=== PATIENT | male | born 2000 | race Caucasian/White ===

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

== ENCOUNTER 2020-09-16 14:13 | Emergency (ER) | payer MEDICAID, OTHER ==
[~2020-09-16] VITALS: Ht 185.4 cm; Wt 62.1 kg
[~2020-09-16 14:13] MED LIST changes: +CEPH500T PO; +DICL75TA2 PO
[2020-09-16 14:15] VITALS: BP 127/80
[2020-09-16] MEDS ORDERED: cefTRIAXone 1,000 MG/2.86 ml vial (IM ONLY) IM STA (14:27)
[2020-09-16] MEDS ORDERED: AZITHROMYCIN 250 MG TAB (ZITHROMAX) PO STA (14:27)
[2020-09-16] MEDS ORDERED: LIDOCAINE 1% INJ 20 ML 20 ML VIAL INJ ONE (14:30)
[2020-09-16 14:40] LABS: BACTERIA,URINE TRACE /HPF; BILIRUBIN,URINE NEGATIVE (NEGATIVE); CLARITY,URINE CLOUDY; COLOR,URINE YELLOW; GLUCOSE, URINE (UA) NEGATIVE (NEGATIVE); KETONES,URINE NEGATIVE (NEGATIVE); LEUKOCYTE ESTERASE ,URINE 2+ (NEGATIVE); NITRITE,URINE NEGATIVE (NEGATIVE); PROTEIN,URINE 1+ (NEGATIVE); WBC,URINE 50-100 /HPF
--- NOTE | 2020-09-16 14:49 | ED GU-Male ---
General Chief Complaint: Male Reproductive Stated Complaint: PENILE DISCHARGE & PAINFUL URINATION Nursing Triage Note: Patient presents to the ED with c/o of penile discharge and burning with urination. He states that he had sexual intercourse with a girl 3 days ago then developed a yellow/green discharge. Source: patient History of Present Illness Date Seen by Provider: Sep 16, 2020 Time Seen by Provider: 14:14 Initial Comments 20-year-old male presenting with complaints of 3 days of burning with urination as well as a yellow-green discharge. He had unprotected intercourse about a week ago with a girl. Then he started having these symptoms about 3 days ago. He denies any fever or chills. He has no rash. He had looked his symptoms up on the Internet and is concerned that he may have gonorrhea or chlamydia. He denies having these symptoms in the past. He denies any allergies to antibiotics. He has no nausea or vomiting. He denies any abdominal pain. He only has pain when he goes to urinate. Severity/Quality: severe, burning (when urinating) Location: urethral Radiation: none Activities at Onset: none Prior Genitourinary Problems: none Sexual Jolivue History: less than 2 months ago Allergies and Home Medications Allergies Coded Allergies: No Known Drug Allergies (Unverified , 11/23/18) Home Medications Amoxicillin 500 Mg Capsule, 875 MG PO BID Prescribed by: THALIA RAMOS on 06/01/191906 Cephalexin 500 Mg Tablet, 500 MG PO BID Prescribed by: RAINA CLAUDIO on 11/05/19827 Cephalexin 500 Mg Tablet, 500 MG PO BID Prescribed by: RAINA CLAUDIO on 11/05/19827 Chlorhexidine Gluconate 473 Ml Mouthwash, 473 ML MM BID Prescribed by: THALIA RAMOS on 06/01/191906 Diclofenac Sodium 50 Mg Tablet.dr, 50 MG PO BID Prescribed by: THALIA RAMOS on 06/01/191906 Diclofenac Sodium 75 Mg Tablet.dr, 75 MG PO BID Prescribed by: RAINA CLAUDIO on 11/05/19827 Diclofenac Sodium 75 Mg Tablet.dr, 75 MG PO BID Prescribed by: RAINA CLAUDIO on 11/05/19827 Hydrocodone Bit/Acetaminophen 1 Tab Tab, 1-2 EACH PO Q6H Prescribed by: LISA VELEZ on 11/23/18 338 Ondansetron 4 Mg Tab.rapdis, 4 MG PO Q6H PRN for NAUSEA/VOMITING Prescribed by: LISA VELEZ on 11/23/18338 Promethazine HCl 25 Mg Tablet, 25 MG PO Q6H PRN for NAUSEA/VOMITING Prescribed by: LISA VELEZ on 11/23/18338 Patient Home Medication List Home Medication List Reviewed: Yes Review of Systems Review of Systems Constitutional: No chills, No fever EENTM: no symptoms reported Respiratory: no symptoms reported Cardiovascular: no symptoms reported Gastrointestinal: no symptoms reported Genitourinary: see HPI Musculoskeletal: no symptoms reported Skin: no symptoms reported Psychiatric/Neurological: No Symptoms Reported Endocrine: No Symptoms Reported Hematologic/Lymphatic: No Symptoms Reported Past Pktvmta-Lpupom-Clyeer Hx Past Med/Social Hx: Reviewed Nursing Past Med/Soc Hx Patient Social History Alcohol Use: Denies Use Number of Drinks Today: AA Alcohol Beverage of Choice: Beer Smoking Status: Current Everyday Smoker Type Used: Cigarettes 2nd Hand Smoke Exposure: No Recent Infectious Disease Expo: No Recent Hopitalizations: No Seasonal Allergies Seasonal Allergies: No Past Medical History Surgeries: No Respiratory: No Cardiac: No Neurological: No Genitourinary: No Gastrointestinal: No Musculoskeletal: No Endocrine: No HEENT: No Cancer: No Psychosocial: No Integumentary: No Blood Disorders: No Physical Exam Vital Signs Vital Signs - First Documented 09/16/20 14:15 Temp 36.3 Pulse 72 Resp 16 B/P (MAP) 127/80 (96) Pulse Ox 98 O2 Delivery Room Air Capillary Refill : Less Than 3 Seconds Height, Weight, BMI Height: 6'0" Weight: 140lbs. oz. 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 tested, alert, oriented x 3 Skin: normal color, warm/dry; No rash Progress/Results/Core Measures Suspected Sepsis Recent Fever Within 48 Hours: No Infection Criteria Present: Suspected New Infection New/Unexplained Altered Menta: No Sepsis Screen: No Definite Risk SIRS Temperature: Pulse: 72 Respiratory Rate: 16 Blood Pressure 127 /80 Mean: 96 Results/Orders Lab Results Laboratory Tests Test 09/16/20 14:15 Range/Units Urine Color YELLOW Urine Clarity CLOUDY Urine pH 6.0 5-9 Urine Specific [place] 1.025 H 1.016-1.022 Urine Protein 1+ H NEGATIVE Urine Glucose (UA) NEGATIVE NEGATIVE Urine Ketones NEGATIVE NEGATIVE Urine Nitrite NEGATIVE NEGATIVE Urine Bilirubin NEGATIVE NEGATIVE Urine Urobilinogen 0.2 < = 1.0 MG/DL Urine Leukocyte Esterase 2+ H NEGATIVE Urine RBC (Auto) 2+ H NEGATIVE Urine RBC 2-5 H /HPF Urine WBC 50-100 H /HPF Urine Squamous Epithelial Cells NONE /HPF Urine Crystals NONE /LPF Urine Bacteria TRACE /HPF Urine Casts NONE /LPF Urine Mucus NEGATIVE /LPF Urine Culture Indicated YES My Orders Orders - AGGIE MALCOLM MD Ua Culture If Indicated (09/16/20 14:18) Neis Dilip Dna Urine Test (09/16/20 14:18) Chlamydia Trachomatis Urine (09/16/20 14:18) Ceftriaxone For Im Use (Rocephin For Im (09/16/20 14:27) Azithromycin Tablet (Zithromax Tablet) (09/16/20 14:27) Lidocaine 1% Inj 20 Ml (Xylocaine 1% Inj (09/16/20 14:30) Urine Culture (09/16/20 14:15) Medications Given in ED Current Medications Medications Dose Ordered Sig/Fabricio Route Start Time Stop Time Status Last Admin Dose Admin Lidocaine HCl 2.1 ml ONCE ONCE INJ 09/16/20 14:30 09/16/20 14:31 DC 09/16/20 14:42 2.1 ML Vital Signs/I&O 09/16/20 14:15 Temp 36.3 Pulse 72 Resp 16 B/P (MAP) 127/80 (96) Pulse Ox 98 O2 Delivery Room Air Capillary Refill : Less Than 3 Seconds Blood Pressure Mean: 96 Progress Note #1: Progress Note UA with GC and Chlamydia sent. based on his symptoms and discharge a dose of Ceftriaxone 1 gm IM and Azithromycin 1 gm po was ordered. Progress Note #2: Progress Note UA shows LE and WBC but not much for bacteria so will proceed with the treatment here in ED but not continue with oral antibiotics beyond the ones here. Follow up with clinic or health department for further testing/care Departure Impression Primary Impression: Urethritis, unspecified Additional Impressions: Penile discharge, without blood Dysuria Disposition: HOME, SELF-CARE Condition: Stable Departure-Patient Inst. Decision time for Depature: 14:49 Referrals: NO,LOCAL PHYSICIAN (PCP) Primary Care Physician [facility] Patient Instructions: STD Prevention, Sexually Transmitted Diseases ED, Urethritis (DC) Add. Discharge Instructions: Stay well hydrated and drink plenty of water and cranberry juice. Over the counter you may try taking AZO to help with pain for the next day or two while the antibiotics kick in to treat the infection. Check with [facility] or [facility] for further testing for other sexually transmitted infection tests. All discharge instructions reviewed with patient and/or family. Voiced understanding. AGGIE MALCOLM MD Sep 16, 2020 14:49
== END 2020-09-16 14:58 | disposition home or self-care (01) ==
LOC: EDUNIT# 14:13 → ER FS 14:14
DX: N34.2 Other urethritis (principal); R36.9 Urethral discharge, unspecified; R30.0 Dysuria; F17.210 Nicotine dependence, cigarettes, uncomplicated
CPT/HCPCS: 36415; 81000; 87088; 87491; 87591; 99284